=== PATIENT | male | born 1940 | race Caucasian/White ===

== ENCOUNTER → 2021-07-25 08:07 | Outpatient (BNVA) | payer MEDICARE, BC, SELFPAY | PROVIDERS: Visit Provider Family Medicine | DX: I10 Essential (primary) hypertension (principal); E78.5 Hyperlipidemia, unspecified | CPT/HCPCS: 80053; 80061 ==

== ENCOUNTER → 2021-08-23 09:43 | Outpatient (BNVA) | payer MEDICARE, BC, SELFPAY | PROVIDERS: Visit Provider Orthopaedic Surgery | DX: M17.0 Bilateral primary osteoarthritis of knee (principal) | CPT/HCPCS: 73560; 73565; 99204 ==

== ENCOUNTER → 2021-09-26 10:07 | Day surgery (SDC) | payer MEDICARE, BC, SELFPAY | PROVIDERS: PCP Family Medicine; Visit Provider Orthopaedic Surgery | DX: Z01.818 Encounter for other preprocedural examination (principal) | CPT/HCPCS: 93005 ==

== ENCOUNTER 2021-10-02 09:12 | Observation (INO) | payer MEDICARE, BC, SELFPAY ==
[2021-09-26 10:00] VITALS: BMI 26.4
--- NOTE | 2021-09-26 10:07 | ECG_ITS ---
[facility] Test Date: 2021-09-26 Pat Name: Kranthi Sales Department: Room: Gender: Male Hedis Analyst: : 1940 Requested By: Ozzie Siegel Order Number: [id number] Santo MD: Italo Lyn M.D. Measurements Intervals [place] Rate: 56 P: 68 VT: 185 QRS: -10 QRSD: 100 T: 8 QT: 431 QTc: 418 Interpretive Statements SINUS BRADYCARDIA No previous ECG available for comparison Electronically Signed On 09-26-2021 17:33:34 CDT by Italo Lyn M.D. [id number]
--- NOTE | 2021-09-26 10:39 | ANES.PREANE2 ---
Pre-Anesthetic Assessment Height/Weight: Height 1.73 m Weight 78.925 kg Preop Diagnosis: Osteoarthritis right knee Operation Date: 10/02/21 09:35 Proposed Procedures p Total Knee Arthroplasty 20646,M17.0(Right) - Tony Quinonez MD Familial anesthetic complications: None Was Beta Rafael taken within 24 hours: N/A Was Clonidine taken within 24 hours: N/A Social No alcohol and No tobacco Exam alert, oriented x 3, clear to auscultation bilaterally and regular rate & rhythm Airway Submandibular: within normal limits Cervical ROM: within normal limits Mallampati: Class II Dentition: false Metabolic Hyperlipidemia [facility] [place] Osteoarthritis/DJD Anesthetic Plan ASA status: 2 Anesthesia: Regional (specify below) (SAB with adductor blk) Medications/Allergies Home Medications Medication Instructions Recorded Confirmed Last Taken Type atorvastatin 20 mg tablet 20 mg PO DAILY 08/23/21 09/26/21 Unknown History latanoprost 0.005 % eye drops 1 drp OPHTHALMIC (EYE) DAILY 08/23/21 09/26/21 Unknown History loratadine 10 mg tablet 10 mg PO DAILY 08/23/21 09/26/21 Unknown History multivitamin 1 tab PO DAILY 08/23/21 09/26/21 Unknown History omega 9-duh-lwj-fish oil 300 1 cap PO DAILY cap 08/23/21 09/26/21 Unknown History mg-1,000 mg capsule (Fish Oil) tramadol 50 mg tablet 50 mg PO BID PRN 08/23/21 09/26/21 Unknown History hospital bed #1 ea 08/25/21 08/25/21 Unknown Rx Allergies Allergy/AdvReac Type Severity Reaction Status Date / Time ibuprofen Allergy Unknown Verified 08/23/21 09:47 [facility] Anesthesia Social History (Updated 08/23/21 @ 09:52 by Maurilio Bryant LPN) Smoking and tobacco status: never smoked Alcohol intake: never Data Anesthesia Cardiac Studies: No Data to Display
[2021-10-02] VITALS (14 sets, daily range): BP systolic 112–175; BP diastolic 63–83; PULSE 48–72; RESP 12–20; TEMP 36.1–36.6; O2SAT 94–100; BMI 27.6
[2021-10-02] MEDS: sodium chloride 0.9% 1,000 ML 30 ML IV (06:11)
[2021-10-02] MEDS: CELEcoxib 200 mg Capsule 400 MG PO (06:11)
[2021-10-02] MEDS: oxyCODONE 20 mg ER (12 HR) Tablet PO (06:12)
[2021-10-02] MEDS: acetaminophen 500 mg Tablet 1000 MG PO ×3 (06:12→21:22)
[2021-10-02] MEDS: gabapentin 300 mg Capsule PO (06:12)
--- NOTE | 2021-10-02 06:32 | P.ANESUD_ITS ---
Pre-Anesthetic Update Pre-Anesthetic Assessment: Date of Surgery/Procedure: 10/02/21 Preop Vita gnosis: Osteoarthritis right knee Proposed Procedure: Operation Date: 10/02/21 07:00 Proposed Procedures p Total Knee Arthroplasty 37377,M17.0(Right) - Tony Quinonez MD Any changes to Pre-Anesthetic Assessment?: No Last Intake: Intake Last Liquid Date 10/01/21 Last Liquid Time 19:00 Last Solid Date 10/01/21 Last Solid Time 18:00 Vitals: Temperature 97.0 F L 10/02/21 05:52 Temperature Source Temporal Artery S can 10/02/21 05:52 Pulse Rate 56 L 10/02/21 05:52 Pulse Rhythm 10/02/21 05:52 Pulse Strength 3+ Normal 10/02/21 05:52 Respiratory Rate 18 10/02/21 05:52 Blood Pressure 175/83 10/02/21 05:52 Blood Pressure Melody n 113 10/02/21 05:52 Pulse Oximetry 96 10/02/21 05:52 Oxygen Delivery Me thod 10/02/21 05:52 Exam: Pre-Anes Outpt Exam: alert, oriented x 3, clear to auscultation bilaterally and regular rate & rhythm Cardiac Studies: No Data to Display
--- NOTE | 2021-10-02 07:02 | ANES.PROC ---
Anesthesia Procedures Procedure/Date: 10/02/21 Nerve Block ^: Nerve Block 1: Main Anesthesia: spinal anesthesia block Time Out Performed: Yes Consent: requested by attending/covering physician, from patient, risks and benefits reviewed and patient agrees to proceed Nerve block location: adductor canal (R) Anesthesia monitors applied: pulse oximetry, EKG, BP cuff and oxygen Nerve block position: supine Anesthetic Used: ropivicaine 0.5% (30 ml) and with decadron (4 mg) Nerve Stimulator Used?: No Interscalene/Femoral BLK: 4 stimuplex 21 g needle used for position and inplane approach, visualize local anesthetic spread and no vascular puncture identified Patient Tolerated Procedure: well and no complications Complications: none
--- NOTE | 2021-10-02 07:18 | W.PM.OPSFHP ---
Same Day Surgery H&P Indication for Procedure/HPI DATE OF PROCEDURE: October 02, 2021 CHIEF COMPLAINT/INDICATIONFOR SURGICAL PROCEDURE: Osteoarthritis right knee here for right total knee arthroplasty PREOP DIAGNOSIS: Osteoarthritis right knee PLANNED PROCEDURE: Operation Date: 10/02/21 07:00 Proposed Procedures p Total Knee Arthroplasty 46737,M17.0(Right) - Tnoy Quinonez MD 81-year-old male with years of progressive right knee pain. Unresponsive medications. Patient has significant limitations. Hard to get in and out of car and even climb stairs. Here for elective right total knee arthroplasty Medications/Allergies* Home Medications Medication Instructions Recorded Confirmed Type atorvastatin 20 mg tablet 20 mg PO DAILY 08/23/21 10/02/21 History latanoprost 0.005 % eye drops 1 drp OPHTHALMIC (EYE) DAILY 08/23/21 10/02/21 History loratadine 10 mg tablet 10 mg PO DAILY 08/23/21 10/02/21 History multivitamin 1 tab PO DAILY 08/23/21 10/02/21 History omega 7-klw-lfs-fish oil 300 1 cap PO DAILY cap 08/23/21 10/02/21 History mg-1,000 mg capsule (Fish Oil) tramadol 50 mg tablet 50 mg PO BID PRN 08/23/21 10/02/21 History Allergies/Adverse Reactions Allergy/AdvReac Type Severity Reaction Status Date / Time ibuprofen Allergy Unknown Verified 08/23/21 09:47 Current Medications: Generic Name Dose Route Start Last Admin Trade Name Freq PRN Reason Stop Dose Admin Sodium Chloride 1,000 mls @ 30 mls/hr 10/02/21 05:45 10/02/21 06:11 Sodium Chloride 0.9% IV 10/03/21 05:44 30 mls/hr .Q24H PADMA Administration Pertinent History/Comorbid Conditions* Social History Smoking and tobacco status: never smoked Alcohol intake: never Pertinent Exam Findings alert, oriented x 3, clear to auscultation bilaterally, regular rate & rhythm and operative site marked Recommendations Surgery/Procedure today Coding Level of Care Code Acute Motion Picture Commentator for Michael Velásquez
[2021-10-02] MEDS: ceFAZolin 2,000 MG in sodium chloride 0.9% (plus) 50 ML 100 MG IV (07:19)
[2021-10-02] MEDS: tranexamic acid 1,000 mg/10mL SDV 1000 MG IV (07:50)
[2021-10-02] MEDS: tranexamic acid 1,000 mg/10mL SDV 1000 MG XX (08:32)
[2021-10-02] MEDS: EPINEPHrine 1 mg/mL INJ XX (08:33)
[2021-10-02] MEDS: ketorolac 30 mg/mL INJ XX (08:33)
[2021-10-02] MEDS: sodium chloride 0.9% 100 mL Bag XX (08:34)
[2021-10-02] MEDS: tobramycin 40 mg/mL SDV 2mL 160 MG INJECTION (08:35)
--- NOTE | 2021-10-02 09:51 | P.OP_ITS ---
Operative Report Date of procedure: October 02, 2021 Pre-op diagnosis: Preop Diagnosis Osteoarthritis right knee Post-op diagnosis: same Post-op diagnosis: Same Post-op findings: Same Procedure done: Right total knee arthroplasty Implants: Fernanda total knee arthroplasty components were used includin) Size 7 triathalon cemented posterior stabilized femoral component 2) Size 8 universal cement tibial component 3) 38 mm /11 mm cemented peg patella 4) Size 8/11 mm thickness posterior stabilized tibial insert Pathology: none sent Surgeon: Tony Quinonez Anesthesia: General and Nerve Block (Spinal, adductor canal block) Estimated blood loss (mL): 200 Findings: The patient had severe tricompartmental degenerative joint disease involving the medial lateral and patellofemoral compartments with eburnated bone in each Condition: stable Disposition: PACU Procedure: The patient was taken to the operating room. Patient was given 1 g of tranexamic acid . The above anesthesia provided by the anesthesia service. A timeout was performed. The patient was prepped and draped in the usual fashion with the lower extremity exposed. A anterior incision was made, midline, from a point proximal to the patella to the distal tibial tubercle. The knee was entered through a medial parapatellar approach. The patella could be displaced laterally and the knee flexed. The patellar fat pad was resected to provide better visibility. Retractors were placed medially and laterally adjacent to the tibial plateau. The femoral canal was drilled in line with the longitudinal axis of the femur. Intramedullary femoral guide for used to make a distal femoral cut in 5 degrees of valgus, resecting 10 mm from the more prominent condyle. Next the extra medullary tibial guide was placed in alignment with the longitudinal axis of the tibia. The cutting guides were set to remove just over 9 mm from the high tibial plateau. The proximal tibia was then cut. The femoral measuring guide was then placed over the distal femur. Rotation was verified checking the relationship of the guide to the condyle and the trochlear groove. The femur was measured and cut for the desired femoral component. The desired tibial baseplate was then chosen. A trial reduction with the femur tibial baseplate and polyethylene was done, assuring that the knee was stable throughout full motion. Ligament balancing involved nothing more than a release of the deep medial collateral ligament and removal of medial osteophyte.The tibia was prepared for the tibial baseplate. Patellar thickness was then measured. The patella was cut removing articular cartilage and prepared for appropriate size patellar button. surfaces were cleaned with a gentamicin solution. The femur tibia and patella were then press- fit into place. The posterior capsule and collateral ligaments were then injected with a solution of 100 mL of 0.2% ropivacaine, 1 mL of a 1:1000 epinephrine solution, 30 mg of Toradol, and 1 g of tranexamic acid. Final polyethylene component was then snapped into place into the tibia. The extensor retinaculum was closed with a running 1 Stratafix interrupted 1 Ethibond. The subcutaneous tissues were closed with 2-0 Vicryl and the skin was closed with a running 4-0 Stratafix. The wound was covered with a Dermabond Prineo dressing. It was covered with 4xrs and a compressive Tubigauze was applied. The patient was taken to recovery room in stable condition.
--- NOTE | 2021-10-02 09:58 | XR_ITS ---
WS: [id number] XR knee RT 1-2V 96081 REASON FOR EXAM: Right Total Knee arthroplasty FINDINGS: Total right knee arthroplasty. Prosthetic components are in proper position and alignment. No focal bony abnormality. XR/XR knee RT 1-2V 33225 IMPRESSION: Total right knee arthroplasty without abnormality.
--- NOTE | 2021-10-02 10:12 | SUR.PHASEI ---
1008-oral airway removed
[2021-10-02] MEDS: sodium chloride 0.9% 1,000 ML 80 ML IV ×2 (10:35→18:56)
--- NOTE | 2021-10-02 17:00 | ANE.PACU2 ---
Inpatient post-anesthesia follow up: Airway intact: Yes Vital signs: Temperature 97.4 F Pulse Rate 53 Respiratory Rate 17 Blood Pressure 127/66 Pulse Oximetry 98 Oxygen Delivery Me thod Room Air Oxygen Flow Rate 5 Fraction of Inspir ed Oxygen Hydration adequate: Yes Nausea and vomiting: No Pain level: 1 Mental status: Baseline
[2021-10-02] MEDS: CELEcoxib 200 mg Capsule PO (17:27)
[2021-10-03] VITALS: BP 114/58; PULSE 63; RESP 17; TEMP 36.5; O2SAT 94
[2021-10-03 04:00] VITALS: BP 122/67; PULSE 54; RESP 17; TEMP 36.6; O2SAT 95
[2021-10-03 04:02] LABS: Hemoglobin 11.7 g/dL (11.7-16.6)
[2021-10-03] MEDS: acetaminophen 500 mg Tablet 1000 MG PO (05:23)
[2021-10-03] MEDS: CELEcoxib 200 mg Capsule PO (05:23)
[2021-10-03 08:00] VITALS: BP 127/66; PULSE 53; RESP 17; TEMP 36.3; O2SAT 98
[2021-10-03] MEDS: aspirin 325 mg EC Tablet PO (08:55)
[2021-10-03] MEDS: atorvastatin 40 mg Tablet 20 MG PO (08:55)
--- NOTE | 2021-10-03 09:05 | P.DS_ITS ---
Discharge Providers Date of Admission: 10/02/21 09:12 Date of Discharge: October 03, 2021 Attending Provider at Admission: Tony Quinonez MD Attending Provider at Discharge: Tony Quinonez MD Primary Care Provider: Nia Thomas MD Hospital Course Hospital Course The patient tolerated surgery well. They remained hemodynamically stable. They was begun on aspirin and reports for DVT prophylaxis. The patient was mobilized with therapy beginning the day of surgery and by the first postoperative day independent with the walker. As the pain was adequately controlled and they were fully mobile they were discharged home. Physical Exam Narrative: On the day of discharge the knee incision was clean. They had no drainage. There is minimal swelling in the thigh and knee and the calf. No distal neurovascular deficits were noted Urinary Catheter Management: Sánchez: Cath Placed During This Visit: yes, but has since been removed by the nurse Reason for Continuing Indwelling Catheter: Decision to DC Catheter Urinary Catheter Date of Insertion: 10/02/21 Urinary Catheter Time of Insertion: 07:45 Date Urinary Catheter Removed: 10/03/21 Time Urinary Catheter Discontinued: 06:34 Discharge Data Studies Completed and Pending Completed Studies During Hospitalization Category Date Time Status XR knee RT 1-2V 59311 Routine Exams 10/02/21 09:58 Completed Radiology Impressions Knee X-Ray 10/02/21 09:58 IMPRESSION: Total right knee arthroplasty without abnormality. Laboratory Results Hgb 11.7 g/dL (11.7-16.6) 10/03/21 03:37 Vitals Last Vital Signs Temp 97.4 F L 10/03/21 08:00 Pulse 53 L 10/03/21 08:00 Resp 17 10/03/21 08:00 BP 127/66 10/03/21 08:00 Pulse Ox 98 10/03/21 08:00 Discharge Plan Discharge Patient Disposition: Home Health Service Condition: Stable Prescriptions: New oxycodone 5 mg Tablet 5 mg PO Q4H PRN (Reason: Moderate Pain) 7 Days Qty: 30 0RF acetaminophen 500 mg Tablet 1,000 mg PO Q8H 14 Days Qty: 84 0RF aspirin 325 mg Tablet,Delayed Release (Dr/Ec) 325 mg PO DAILY 30 Days Qty: 30 0RF celecoxib 200 mg Capsule 200 mg PO Q12H 14 Days Qty: 28 0RF Continued latanoprost 0.005 % drops 1 drp ophthalmic (eye) DAILY 0RF tramadol 50 mg tablet 50 mg PO BID PRN (Reason: Pain) 0RF multivitamin Tablet 1 tab PO DAILY 0RF omega 7-jfp-ihy-fish oil [Fish Oil] 300-1,000 mg capsule 1 cap PO DAILY 0RF loratadine 10 mg tablet 10 mg PO DAILY 0RF atorvastatin 20 mg tablet 20 mg PO DAILY 0RF (DME) hospital bed See Rx Instructions .Route .MEDSUPPLY Qty: 1 0RF Rx Instructions: As directed Discharge Orders: Discharge Order (Routine); Ordered 10/03/21 Ordered By: Tony Quinonez Other Ambulatory Orders: DME: Walker (Order) Location: None Selected Ordered By: Tony Quinonez [place] [facility] [place] [facility] [place]Outside] Luis Epstein FNP [Physician Player Services Representative] - 10/06/21 9:30 am Discharge Diet: Advance as tolerated Discharge Activity: Limit activity as instructed Patient Instructions: Opioid Safety Activity Restrictions/Additional Instructions: Okay to shower Keep Tubigauze sleeve in place for swelling. Okay to remove for hygiene. Apply FirstIce up to 20 min/hr for pain and swelling Take Celebrex twice a day for the next 15 days for pain , discontinue other anti-inflammatories Take Tylenol 500mg (2 tabs) as needed 3 times a day for mild pain take oxycodone for breakthrough pain. Exercises per physical therapy. May weight-bear as tolerated on total knee arthroplasty IF HAVE ANY PROBLEMS OR QUESTIONS CALL HOSPITAL ASSISTANT MANAGER TRAINEE AT AND ASK TO HAVE DR. ELIZABETH SAGASTUME. Discharge Attestations Time Spent in Discharge Care*: other Quality Metrics Clinical Quality Measures [ No reported AMI, CVA or VTE this stay] Coding Level of Care Code Acute Chg FW DC note
[2021-10-03 10:53] VITALS: BP 127/66; PULSE 53; RESP 17; TEMP 36.3; O2SAT 98
== END 2021-10-03 10:55 | disposition home health service (06) ==
LOC: MEDSURG 09:12
PROVIDERS: Admitting Provider Orthopaedic Surgery; PCP Family Medicine; Visit Provider Orthopaedic Surgery
PROC: (CPT 27447; principal; 2021-10-02 07:00)
DX: M17.11 Unilateral primary osteoarthritis, right knee (principal); E78.5 Hyperlipidemia, unspecified
CPT/HCPCS: 27447; 36415; 51702; 73560; 85018; 97110; 97116; 97161; 97165; C1713; C1776; G0378; J0171; J1100; J1885; J2370; J2704; J2795; J3010; J3260; J3490; J7030

== ENCOUNTER → 2021-10-06 09:14 | Outpatient (BNVA) | payer MEDICARE, BC, SELFPAY | PROVIDERS: PCP Family Medicine; Visit Provider Nurse Practitioner Family | DX: Z96.651 Presence of right artificial knee joint (principal) | CPT/HCPCS: 99024 ==

== ENCOUNTER 2021-10-24 09:24 | Outpatient (RCR) | payer MEDICARE, BC, SELFPAY | END 2021-11-15 23:59 | disposition home or self-care (01) | LOC: SPT 09:24 | PROVIDERS: PCP Family Medicine; Referring Provider Orthopaedic Surgery; Visit Provider Orthopaedic Surgery | DX: Z96.651 Presence of right artificial knee joint (principal) | CPT/HCPCS: 97110; 97150; 97161 ==

== ENCOUNTER → 2021-11-02 09:28 | Outpatient (BNVA) | payer MEDICARE, BC, SELFPAY | PROVIDERS: PCP Family Medicine; Visit Provider Nurse Practitioner Family | DX: Z96.651 Presence of right artificial knee joint (principal) | CPT/HCPCS: 73560; 73565; 99213 ==

== ENCOUNTER 2021-11-16 06:00 | Outpatient (RCR) | payer MEDICARE, BC, SELFPAY | END 2021-12-15 23:59 | disposition home or self-care (01) | LOC: SPT 06:00 | PROVIDERS: PCP Family Medicine; Visit Provider Orthopaedic Surgery | DX: Z96.651 Presence of right artificial knee joint (principal) | CPT/HCPCS: 97110 ==

== ENCOUNTER 2021-12-05 16:32 | Outpatient (CLI) | payer MEDICARE, BC, SELFPAY ==
--- NOTE | 2021-12-05 17:00 | CT_ITS ---
WS: [id number] CT LEFT KNEE, [facility] PROTOCOL HISTORY: M17.12 - Unilateral primary osteoarthritis, left knee Technique: All CT scans at [facility] use at least one of these dose optimization techniques: automated exposure control; mA and/or kV adjustment per patient size (includes targeted exams where dose is matched to clinical indication); or iterative reconstruction. DLP: 1480.12 mGy.cm COMPARISON: None available. Limited evaluation and axial imaging only through the LEFT hip, LEFT knee and LEFT ankle. Study prepl anning for surgery. Partial fusion LEFT SI joint. Osteopenia with degenerative narrowing at the hip joint. Mild subluxati on laterally of the patella. Hypertrophic bone formation at the knee with joint space narrowing. Mild lateral subluxation of the tibia. Mild degenerative changes at the ankle joint. There is extensive peripheral arterial calcification throughout the lower extremity arterial system. CT/CT knee LT wo con* [id number] IMPRESSION: 1. Limited imaging through the joints of the LEFT lower extremity [facility]. 2. Extensive peripheral arterial disease.
== END 2021-12-05 16:33 | disposition home or self-care (01) ==
LOC: RAD 16:34
PROVIDERS: PCP Family Medicine; Visit Provider Orthopaedic Surgery
DX: M17.12 Unilateral primary osteoarthritis, left knee (principal); I73.9 Peripheral vascular disease, unspecified
CPT/HCPCS: 73700

== ENCOUNTER → 2021-12-06 09:00 | Outpatient (BNVA) | payer MEDICARE, BC, SELFPAY | PROVIDERS: PCP Family Medicine; Visit Provider Orthopaedic Surgery | DX: M17.12 Unilateral primary osteoarthritis, left knee (principal); Z96.651 Presence of right artificial knee joint | CPT/HCPCS: 99024; 99214 ==

== ENCOUNTER 2021-12-25 16:57 | Observation (INO) | payer MEDICARE, BC, SELFPAY ==
[2021-12-11 13:02] VITALS: BMI 25.8
--- NOTE | 2021-12-11 15:26 | P.ANESASSM_ITS ---
Pre-Anesthetic Assessment Height/Weight: Height 1.73 m Weight 77.111 kg Preop Diagnosis: Osteoarthritis right knee Operation Date: 12/25/21 13:05 Proposed Procedures p Brian left total knee arthroplasty:50598,M17.12Q(Left) - Tony Quinonez MD Familial anesthetic complications: none Was Beta Rafael taken within 24 hours: N/A Was Clonidine taken within 24 hours: N/A Social No alcohol and No tobacco Exam alert, oriented x 3, clear to auscultation bilaterally and regular rate & rhythm Airway Submandibular: within normal limits Cervical ROM: within normal limits Mallampati: Class II Dentition: false Metabolic Hyperlipidemia [facility] Osteoarthritis/DJD Anesthetic Plan ASA status: 2 Anesthesia: Regional (specify below) (SAB with adductor blk) Medications/Allergies Home Medications Medication Instructions Recorded Confirmed Last Taken Type atorvastatin 20 mg tablet 20 mg PO DAILY 08/23/21 12/11/21 10/02/21 History latanoprost 0.005 % eye drops 1 drp ophthalmic (eye) DAILY 08/23/21 12/11/21 10/01/21 History loratadine 10 mg tablet 10 mg PO DAILY 08/23/21 12/11/21 10/02/21 History multivitamin 1 tab PO DAILY 08/23/21 12/11/21 10/01/21 History omega 5-zqm-koc-fish oil 300 1 cap PO DAILY 08/23/21 12/11/21 10/01/21 History mg-1,000 mg capsule (Fish Oil) tramadol 50 mg tablet 50 mg PO BID PRN Pain 08/23/21 12/11/21 10/02/21 History hospital bed #1 ea 08/25/21 12/06/21 Unknown Rx Allergies Allergy/AdvReac Type Severity Reaction Status Date / Time celecoxib [From Celebrex] Allergy fluid Verified 12/11/21 13:00 ibuprofen Allergy Unknown Verified 12/11/21 13:00 [facility] Anesthesia Social History Smoking and tobacco status: never smoked Alcohol intake: never Data Anesthesia Cardiac Studies: No Data to Display
[2021-12-25] VITALS (18 sets, daily range): BP systolic 104–160; BP diastolic 54–83; PULSE 54–78; RESP 16–18; TEMP 36.2–36.7; O2SAT 97–100
[2021-12-25] MEDS: gabapentin 300 mg Capsule PO (11:06)
[2021-12-25] MEDS: acetaminophen 500 mg Tablet 1000 MG PO ×2 (11:07→18:50)
[2021-12-25] MEDS: oxyCODONE 20 mg ER (12 HR) Tablet PO (11:07)
[2021-12-25] MEDS: sodium chloride 0.9% 1,000 ML 30 ML IV (11:28)
--- NOTE | 2021-12-25 11:49 | ECG_ITS ---
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 Measurements Intervals [place] Rate: 51 P: 84 [place]: 198 QRS: 3 QRSD: 105 T: 14 QT: 472 QTc: 435 Interpretive Statements SINUS BRADYCARDIA WITH OCCASIONAL ECTOPIC PREMATURE COMPLEXES Compared to ECG 09/26/2021 10:23:37 No significant changes Electronically Signed On 12-25-2021 21:20:42 CDT by Sowmya Nagy M.D. [email or web address] Bridgeummc holmes [email or web address]![facility] [email or web address]/store/[id number]
[2021-12-25 12:12] LABS: Basophils % 0.6 %; Eosinophils # 0.1 10^3/uL (0.0-0.8); Eosinophils % 2.8 %; Hematocrit 43.4 % (42.0-52.0); Hemoglobin 14.5 g/dL (11.7-16.6); Lymphocytes # 1.3 10^3/uL (0.8-4.8); Lymphocytes % 24.8 %; Mean Corpuscular HGB Conc 33.4 g/dL (30.0-36.0); Mean Corpuscular Volume 95.8 fl (80-94); Mean Platelet Volume 10.7 fL (7.4-10.4); Monocytes # 0.5 10^3/uL (0.2-0.9); Neutrophils # 3.17 10^3/uL (1.8-7.7); Neutrophils % 62.2 %; Nucleated Red Blood Cells % 0 %; Platelet Count 165 10^3/cmm (130-400); Red Blood Count 4.53 10^6/uL (4.1-5.3); Red Cell Distribution Width 12.8 % (12.1-15.1); White Blood Count 5.1 10^3/uL (4.0-10.0)
--- NOTE | 2021-12-25 12:16 | P.ANESUD_ITS ---
Pre-Anesthetic Update Pre-Anesthetic Assessment: Date of Surgery/Procedure: 12/25/21 Preop Vita gnosis: Osteoarthritis left knee Proposed Procedure: Operation Date: 12/25/21 12:30 Proposed Procedures p Brian left total knee arthroplasty:66603,M17.12Q(Left) - Tony Quinonez MD Any changes to Pre-Anesthetic Assessment?: No Last Intake: Intake Last Liquid Date 12/24/21 Last Liquid Time 21:00 Last Solid Date 12/24/21 Last Solid Time 19:00 Labs Last 48hrs: Short CBC 12/25/21 Range/Units 12:00 WBC 5.1 (4.0-10.0) 10^3/ uL Hgb 14.5 (11.7-16.6) g/dL Hct 43.4 (42.0-52.0) % MCV 95.8 H (80-94) fl Plt Count 165 (130-400) 10^3/c mm Neut % (Auto) 62.2 % Neut # (Auto) 3.17 (1.8-7.7) 10^3/u L Vitals: Temperature 97.2 F L 12/25/21 10:47 Temperature Source Temporal Artery S can 12/25/21 10:47 Pulse Rate 72 12/25/21 10:47 Respiratory Rate 18 12/25/21 10:47 Blood Pressure 160/83 12/25/21 10:47 Blood Pressure Melody n 108 12/25/21 10:47 Pulse Oximetry 99 12/25/21 10:47 Oxygen Delivery Me thod 12/25/21 10:51 Exam: Pre-Anes Outpt Exam: alert, oriented x 3, clear to auscultation bilaterally and regular rate & rhythm Cardiac Studies: No Data to Display
--- NOTE | 2021-12-25 12:16 | ANES.PROC ---
Anesthesia Procedures Procedure/Date: 12/25/21 Nerve Block ^: Nerve Block 1: Main Anesthesia: spinal anesthesia block Time Out Performed: Yes Consent: requested by attending/covering physician, from patient, risks and benefits reviewed and patient agrees to proceed Nerve block location: adductor canal (L) Anesthesia monitors applied: pulse oximetry, EKG and BP cuff Nerve block position: semi sitting Anesthetic Used: ropivicaine 0.5% (30 ml) and with decadron (4 mg) Ultrasound used to: recognize landmarks and visualize and ID femerol nerve Nerve Stimulator Used?: No Interscalene/Femoral BLK: 4 stimuplex 21 g needle used for position and inplane approach, visualize local anesthetic spread and no vascular puncture identified Injection: neg aspiration of heme Patient Tolerated Procedure: well and no complications
--- NOTE | 2021-12-25 12:28 | P.HP_ITS ---
Same Day Surgery H&P Indication for Procedure/HPI DATE OF PROCEDURE: December 25, 2021 CHIEF COMPLAINT/INDICATIONFOR SURGICAL PROCEDURE: Osteoarthritis left knee here for left total knee arthroplasty PREOP DIAGNOSIS: Osteoarthritis left knee PLANNED PROCEDURE: Operation Date: 12/25/21 12:30 Proposed Procedures p Brian left total knee arthroplasty:14507,M17.12Q(Left) - Tony Quinonez MD 81-year-old male known to me after a right total knee arthroplasty on 09/24/2021. He did very well however continues to have activity related pain in the left knee. He is here today for left total knee arthroplasty Medications/Allergies* Home Medications Medication Instructions Recorded Confirmed Type atorvastatin 20 mg tablet 20 mg PO DAILY 08/23/21 12/25/21 History latanoprost 0.005 % eye drops 1 drp ophthalmic (eye) DAILY 08/23/21 12/25/21 History loratadine 10 mg tablet 10 mg PO DAILY 08/23/21 12/25/21 History multivitamin 1 tab PO DAILY 08/23/21 12/25/21 History omega 4-lhg-vew-fish oil 300 1 cap PO DAILY 08/23/21 12/25/21 History mg-1,000 mg capsule (Fish Oil) tramadol 50 mg tablet 50 mg PO BID PRN Pain 08/23/21 12/25/21 History Allergies/Adverse Reactions Allergy/AdvReac Type Severity Reaction Status Date / Time celecoxib [From Celebrex] Allergy fluid Verified 12/11/21 13:00 ibuprofen Allergy Unknown Verified 12/11/21 13:00 Current Medications: Generic Name Dose Route Start Last Admin Trade Name Ama PRN Reason Stop Dose Admin Sodium Chloride 1,000 mls @ 30 mls/hr 12/25/21 10:30 12/25/21 11:28 Sodium Chloride 0.9% IV 12/26/21 10:29 30 mls/hr .Q24H PADMA Administration Pertinent History/Comorbid Conditions* Social History Smoking and tobacco status: never smoked Alcohol intake: never Pertinent Exam Findings alert, oriented x 3, clear to auscultation bilaterally and regular rate & rhythm Recommendations Surgery/Procedure today Coding Level of Care Code Acute Line Construction Supervisor for Michael Velásquez
[2021-12-25 12:36] LABS: Anion Gap 12.3 (5-19); Blood Urea Nitrogen 13 mg/dL (8-23); Calcium 8.7 mg/dL (8.5-10.5); Carbon Dioxide 27 mmol/L (22-29); Chloride 105 mmol/L (98-107); Glucose 90 mg/dL (65-115); Osmolality Calculated 290 mOsm/kg (285-295); Potassium 4.3 mmol/L (3.5-5.1); Sodium 140 mmol/L (136-145)
[2021-12-25 12:37] LABS: Creatinine Clr Calc Pharmacy 72.3836
[2021-12-25] MEDS: ceFAZolin 2,000 MG in sodium chloride 0.9% (plus) 50 ML 100 MG IV (13:30)
[2021-12-25] MEDS: tranexamic acid 1,000 mg/10mL SDV 1000 MG IV (14:00)
[2021-12-25] MEDS: EPINEPHrine 1 mg/mL INJ XX (14:01)
--- NOTE | 2021-12-25 15:44 | P.OP_ITS ---
Operative Report Date of procedure: December 25, 2021 Pre-op diagnosis: Preop Diagnosis Osteoarthritis left knee Post-op diagnosis: same Post-op diagnosis: Same Post-op findings: Same Procedure done: Left] total knee arthroplasty Implants: Fernanda Triathalon total knee arthroplasty components were used includin) Size 7 triathalon cruciate retaining femoral component 2) Size 8 Tritanium tibial component 3) Size 8/9 mm thickness CS tibial bearing insert Pathology: none sent Surgeon: Tony Quinonez Anesthesia: Nerve Block (Spinal, adductor canal block) Estimated blood loss (mL): 250 Findings: The patient eburnated bone over the medial femoral condyle, lateral femoral condyle and medial tibial plateau. There is thinning of the patellar cartilage however the patella articulated well with the femur. Condition: stable Disposition: PACU Procedure: The patient was taken to the operating room. Patient was given 1 g of tranexamic acid and 2 g of Ancef. The above anesthesia provided by the anesthesia service. A timeout was performed. The patient was prepped and draped in the usual fashion with the lower extremity exposed. A anterior incision was made, midline, from a point proximal to the patella to the distal tibial tubercle. The knee was entered through a medial parapatellar approach. The patella could be displaced laterally and the knee flexed. The patellar fat pad was resected to provide better visibility. Retractors were placed medially and laterally adjacent to the tibial plateau. At a point approximately 8 cm above the patella, 2 small incisions were made with a scalpel blade and 2 long threaded pins were placed into the anterior medial femur engaging both cortices. The femoral arrays were placed over these pins and secured. At a point 8 cm distal to the tibial tubercle. 2 shorter bicortical threaded pins were placed across the anterior medial tibia and the tibial arrays placed. A checkpoint was made just proximal and medial to the medial femoral condyle and just medial to the tibial plateau. Next a rongeur was used to remove all osteophytes from the femur medially and laterally. Small osteotomes were placed in the joint in both flexion and extension to determine ligamentous laxity. The femoral condyle was positioned to create equal 18 mm flexion gaps in both compartments and full extension and flexion.. The [employer] robot was then introduced to the field and the femur and tibia cut in accordance with our plan. he [employer] was then used to provide hemostasis, particularly about the posterior capsule. A trial with the above components provided excellent stability and full range of motion. The femur was then prepared for the femoral pegs of the component in the tibia for the tibial component. The femur and tibia were then press-fit into place. A neurectomy was accomplished circumferentially about the patella with electrocautery and lateral osteophytes removed. Surfaces were cleaned with a gentamicin solution. The femur and tibia were then press-fit into place. The posterior capsule and collateral ligaments were then injected with a solution of 100 mL of 0.2% ropivacaine, 1 mL of a 1:1000 epinephrine solution, 30 mg of Toradol, and 1 g of tranexamic acid. Final polyethylene component was then snapped into place into the tibia. The extensor retinaculum was closed with a running 1 Stratafix interrupted 1 Ethibond. The subcutaneous tissues were closed with 2-0 Vicryl and the skin was closed with a running 4-0 Stratafix. The wound was covered with a Dermabond Prineo dressing. It was covered with 4xrs and a compressive Tubigauze was applied. The patient was taken to recovery room in stable condition.
--- NOTE | 2021-12-25 15:51 | XRR_ITS ---
PROCEDURE INFORMATION: Exam: XR Left Knee Exam date and time: 12/25/2021 4:16 PM Age: 81 years old Clinical indication: Device placement; Joint replacement hardware; Prior surgery; Surgery date: Post-operative (0-2 days); Additional info: Left total knee arthroplasty TECHNIQUE: Imaging protocol: Radiologic exam of the Left knee. Views: 1 or 2 views. COMPARISON: CT knee LT [facility] 12/05/2021 4:46 PM FINDINGS: Tubes, catheters and devices: There is a new left knee replacement with prosthetic components in anatomic alignment. Bones/joints: Normal. Soft tissues: There is gas in the soft tissues and within the suprapatellar bursa related to the recent surgery. Vasculature: There is extensive atherosclerotic vascular calcification in regional vessels. XR/XR knee LT 1-2V 10024 IMPRESSION: Left knee replacement.
--- NOTE | 2021-12-25 15:57 | P.PCN_ITS ---
PACU note Narrative: VSS, Good respiratory effort, report to FISH PEDDLER Exam: awake
--- NOTE | 2021-12-25 15:57 | PM.PACU ---
PACU note Narrative: VSS, Good respiratory effort, report to CRYPTOLOGIC SUPPORT SPECIALIST Exam: awake
[2021-12-25] MEDS: sodium chloride 0.9% 1,000 ML 75 ML IV (17:17)
--- NOTE | 2021-12-25 17:56 | SUR.OPER ---
1545 towel tourniquet released from left upper thigh. left leg pwd. cap refill <3sec. skin around tourniquet pwd and intact.
[2021-12-25] MEDS: oxyCODONE 5 mg IR Tab/Cap PO (19:14)
--- NOTE | 2021-12-25 19:53 | ANE.PACU2 ---
Inpatient post-anesthesia follow up: Airway intact: Yes Vital signs: Temperature 98.1 F Pulse Rate 66 Respiratory Rate 16 Blood Pressure 111/56 Pulse Oximetry 97 Oxygen Delivery Me thod Room Air Oxygen Flow Rate 6 Fraction of Inspir ed Oxygen Hydration adequate: Yes Nausea and vomiting: No Pain level: 1 Mental status: Baseline
[2021-12-26] VITALS (7 sets, daily range): BP systolic 112–130; BP diastolic 54–69; PULSE 55–69; RESP 12–17; TEMP 36.4–36.6; O2SAT 97–100
[2021-12-26] MEDS: ceFAZolin 2,000 MG in sodium chloride 0.9% (plus) 50 ML 100 MG IV ×2 (00:07→07:34)
[2021-12-26] MEDS: oxyCODONE 5 mg IR Tab/Cap PO ×2 (00:07→07:58)
[2021-12-26] MEDS: acetaminophen 500 mg Tablet 1000 MG PO (03:11)
[2021-12-26] MEDS: sodium chloride 0.9% 1,000 ML 75 ML IV (06:27)
[2021-12-26] MEDS: aspirin 325 mg EC Tablet PO (08:00)
[2021-12-26] MEDS: atorvastatin 40 mg Tablet 20 MG PO (08:00)
--- NOTE | 2021-12-26 08:19 | P.DS_ITS ---
Discharge Providers Date of Admission: 12/25/21 16:57 Date of Discharge: December 26, 2021 Attending Provider at Admission: Tony Johnson MD Attending Provider at Discharge: Tony Johnson MD Primary Care Provider: Nia Thomas MD Hospital Course Hospital Course The patient tolerated surgery well. They remained hemodynamically stable. They was begun on aspirin and foot pumps for DVT prophylaxis. The patient was mobilized with therapy beginning the day of surgery and by the first postoperative day independent with the walker. As the pain was adequately controlled and they were fully mobile they were discharged home. Physical Exam Narrative: On the day of discharge the knee incision was clean. They had no drainage. There is minimal swelling in the thigh and knee and the calf. No distal neurovascular deficits were noted Urinary Catheter Management: Sánchez: Cath Placed During This Visit: yes Urinary Catheter Date of Insertion: 12/25/21 Urinary Catheter Time of Insertion: 13:40 Discharge Data Studies Completed and Pending Completed Studies During Hospitalization Category Date Time Status XR knee LT 1-2V 30868 Routine Exams 12/25/21 15:51 Completed Radiology Impressions Knee X-Ray 12/25/21 15:51 IMPRESSION: Left knee replacement. Laboratory Results WBC 5.1 10^3/uL (4.0-10.0) 12/25/21 12:00 RBC 4.53 10^6/uL (4.1-5.3) 12/25/21 12:00 Hgb 12.0 g/dL (11.7-16.6) 12/26/21 04:10 Hct 43.4 % (42.0-52.0) 12/25/21 12:00 MCV 95.8 fl (80-94) H 12/25/21 12:00 MCH 32.0 pg (28.0-34.0) 12/25/21 12:00 MCHC 33.4 g/dL (30.0-36.0) 12/25/21 12:00 RDW 12.8 % (12.1-15.1) 12/25/21 12:00 Plt Count 165 10^3/cmm (130-400) 12/25/21 12:00 MPV 10.7 fL (7.4-10.4) H 12/25/21 12:00 Neut % (Auto) 62.2 % 12/25/21 12:00 Lymph % (Auto) 24.8 % 12/25/21 12:00 Atkinson % (Auto) 9.0 % 12/25/21 12:00 Eos % (Auto) 2.8 % 12/25/21 12:00 Baso % (Auto) 0.6 % 12/25/21 12:00 Neut # (Auto) 3.17 10^3/uL (1.8-7.7) 12/25/21 12:00 Lymph # (Auto) 1.3 10^3/uL (0.8-4.8) 12/25/21 12:00 Atkinson # (Auto) 0.5 10^3/uL (0.2-0.9) 12/25/21 12:00 Eos # (Auto) 0.1 10^3/uL (0.0-0.8) 12/25/21 12:00 Baso # (Auto) 0.0 10^3/uL (0.0-0.1) 12/25/21 12:00 Nucleated RBC % (auto) 0 % 12/25/21 12:00 Nucleated RBCs # 0.0 /100WBC 12/25/21 12:00 Sodium 140 mmol/L (136-145) 12/25/21 12:00 Potassium 4.3 mmol/L (3.5-5.1) 12/25/21 12:00 Chloride 105 mmol/L (98-107) 12/25/21 12:00 Carbon Dioxide 27 mmol/L (22-29) 12/25/21 12:00 Anion Gap 12.3 (5-19) 12/25/21 12:00 BUN 13 mg/dL (8-23) 12/25/21 12:00 Creatinine 0.6 mg/dL (0.7-1.2) L 12/25/21 12:00 GFR Calculation Not Reportable 12/25/21 12:00 Glucose 90 mg/dL (65-115) 12/25/21 12:00 Calculated Osmolality 290 mOsm/kg (285-295) 12/25/21 12:00 Calcium 8.7 mg/dL (8.5-10.5) 12/25/21 12:00 Vitals Last Vital Signs Temp 97.8 F 12/26/21 07:48 Pulse 67 12/26/21 04:10 Resp 14 12/26/21 07:58 BP 112/54 12/26/21 04:10 Pulse Ox 97 12/26/21 04:10 O2 Del Method 12/26/21 04:10 O2 Flow Rate 6 12/25/21 15:54 Discharge Plan Discharge Patient Disposition: Home Condition: Stable Prescriptions: New oxycodone 5 mg Tablet 5 mg PO Q4H PRN (Reason: Moderate Pain) 7 Days Qty: 30 0RF acetaminophen 500 mg Tablet 1,000 mg PO Q8H 14 Days Qty: 84 0RF aspirin 325 mg Tablet,Delayed Release (Dr/Ec) 325 mg PO DAILY 30 Days Qty: 30 0RF Continued latanoprost 0.005 % drops 1 drp ophthalmic (eye) DAILY tramadol 50 mg tablet 50 mg PO BID PRN (Reason: Pain) multivitamin Tablet 1 tab PO DAILY omega 2-hak-nls-fish oil [Fish Oil] 300-1,000 mg capsule 1 cap PO DAILY loratadine 10 mg tablet 10 mg PO DAILY atorvastatin 20 mg tablet 20 mg PO DAILY (DME) hospital bed See Rx Instructions .Route .MEDSUPPLY Qty: 1 0RF Rx Instructions: As directed Discharge Orders: Discharge Order (Routine); Ordered 12/26/21 Ordered By: Tony Johnson Referrals: Luis Epstein FNP [Physician [facility]] - 12/29/21 10:00 am Discharge Diet: Advance as tolerated Discharge Activity: Limit activity as instructed Patient Instructions: Precautions after Total Joint Replacement Surgery (GEN), Joint Replacement Surgery (GEN), Knee Replacement (GEN), Opioid Safety Activity Restrictions/Additional Instructions: Okay to shower Keep Tubigauze sleeve in place for swelling. Okay to remove for hygiene. Apply FirstIce up to 20 min/hr for pain and swelling Take Celebrex twice a day for the next 15 days for pain , discontinue other anti-inflammatories Take Tylenol 500mg (2 tabs) as needed 3 times a day for mild pain take oxycodone for breakthrough pain. Exercises per physical therapy. May weight-bear as tolerated on total knee arthroplasty IF HAVE ANY PROBLEMS OR QUESTIONS CALL [facility] AT AND ASK TO HAVE DR. JOHNSON PAGED. Discharge Attestations Time Spent in Discharge Care*: other Quality Metrics Clinical Quality Measures [ No reported AMI, CVA or VTE this stay] Coding Level of Care Code Acute Chg FW DC note
--- NOTE | 2021-12-26 09:20 | PC.NURSE ---
Sánchez catheter removed, withdrew 10 mL from catheter balloon, balloon intact. Patient tolerated well. 200 urine output, clear, yellow, no odor noted at this time.
== END 2021-12-26 12:20 | disposition home health service (06) ==
LOC: OBGYN 20:43
PROVIDERS: Anesthesiology; Admitting Provider Orthopaedic Surgery; PCP Family Medicine; Visit Provider Orthopaedic Surgery
PROC: 8E0Y0CZ Robotic Assisted Procedure of Lower Extremity, Open Approach (ICD-10-PCS; CPT 27447; principal; 2021-12-25 12:10)
DX: M17.12 Unilateral primary osteoarthritis, left knee (principal); E78.5 Hyperlipidemia, unspecified
CPT/HCPCS: 27447; 36415; 51702; 73560; 80048; 85018; 85025; 93005; 97110; 97116; 97161; 97165; C1713; C1776; G0378; J0171; J1100; J1580; J2250; J2270; J2370; J2704; J2795; J3010; J7030

== ENCOUNTER → 2021-12-29 09:53 | Outpatient (BNVA) | payer MEDICARE, BC, SELFPAY | PROVIDERS: PCP Family Medicine; Visit Provider Nurse Practitioner Family | DX: Z96.652 Presence of left artificial knee joint (principal) | CPT/HCPCS: 99024 ==

== ENCOUNTER 2022-01-17 06:00 | Outpatient (RCR) | payer MEDICARE, BC, SELFPAY | END 2022-02-14 23:59 | disposition home or self-care (01) | LOC: SPT 06:00 | PROVIDERS: PCP Family Medicine; Visit Provider Orthopaedic Surgery | DX: Z96.652 Presence of left artificial knee joint (principal) | CPT/HCPCS: 97110; 97161 ==

== ENCOUNTER → 2022-01-24 10:47 | Outpatient (BNVA) | payer MEDICARE, BC, SELFPAY | PROVIDERS: PCP Family Medicine; Visit Provider Nurse Practitioner Family | DX: Z96.652 Presence of left artificial knee joint (principal); M25.511 Pain in right shoulder | CPT/HCPCS: 73560; 73565; 99213 ==

== ENCOUNTER 2022-02-15 06:00 | Outpatient (RCR) | payer MEDICARE, BC, SELFPAY | END 2022-02-26 23:59 | disposition home or self-care (01) | LOC: SPT 06:00 | PROVIDERS: PCP Family Medicine; Visit Provider Orthopaedic Surgery | DX: Z96.652 Presence of left artificial knee joint (principal) | CPT/HCPCS: 97110 ==

== ENCOUNTER → 2022-04-25 10:07 | Outpatient (BNVA) | payer MEDICARE, BC, SELFPAY | PROVIDERS: PCP Family Medicine; Visit Provider Nurse Practitioner Family | DX: Z96.653 Presence of artificial knee joint, bilateral (principal); M25.512 Pain in left shoulder | CPT/HCPCS: 73560; 73565; 99214 ==

== ENCOUNTER → 2022-07-31 08:58 | Outpatient (BNVA) | payer MEDICARE, BC, SELFPAY | PROVIDERS: PCP Family Medicine; Visit Provider Family Medicine | DX: E78.5 Hyperlipidemia, unspecified (principal); M19.90 Unspecified osteoarthritis, unspecified site | CPT/HCPCS: 80053; 80061 ==

== ENCOUNTER → 2022-09-04 10:50 | Outpatient (BNVA) | payer MEDICARE, BC, SELFPAY | PROVIDERS: PCP Family Medicine; Visit Provider Nurse Practitioner Family | DX: L81.4 Other melanin hyperpigmentation (principal); D22.5 Melanocytic nevi of trunk; Z71.89 Other specified counseling; L85.3 Xerosis cutis; L57.8 Other skin changes due to chronic exposure to nonionizing radiation; L57.0 Actinic keratosis | CPT/HCPCS: 17000; 17003; 99213 ==

== ENCOUNTER → 2023-07-25 09:15 | Outpatient (BNVA) | payer MEDICARE, BC, SELFPAY | PROVIDERS: PCP Family Medicine; Visit Provider Family Medicine | DX: Z85.46 Personal history of malignant neoplasm of prostate (principal); E78.5 Hyperlipidemia, unspecified; C61 Malignant neoplasm of prostate | CPT/HCPCS: 80053; 80061; 84153; 85025 ==

== ENCOUNTER → 2024-07-23 08:53 | Outpatient (BNVA) | payer MEDICARE, BC, SELFPAY | PROVIDERS: PCP Family Medicine; Visit Provider Family Medicine | DX: R41.3 Other amnesia (principal); E78.5 Hyperlipidemia, unspecified; E55.9 Vitamin D deficiency, unspecified | CPT/HCPCS: 80053; 82306; 82607; 84443; 85025; 86140 ==

== ENCOUNTER 2025-02-03 13:35 | Outpatient (RCR) | payer MEDICARE, BC, SELFPAY | END 2025-02-14 23:59 | disposition home or self-care (01) | LOC: SPT 13:35 | PROVIDERS: Visit Provider Family Medicine | DX: R53.1 Weakness (principal); R29.6 Repeated falls | CPT/HCPCS: 97110; 97161 ==

== ENCOUNTER 2025-02-15 05:00 | Outpatient (RCR) | payer MEDICARE, BC, SELFPAY | END 2025-03-17 23:59 | disposition home or self-care (01) | LOC: SPT 05:00 | PROVIDERS: Visit Provider Family Medicine | DX: R53.1 Weakness (principal); R29.6 Repeated falls | CPT/HCPCS: 97110; 97112 ==